=== PATIENT | female | born 1980 | race Caucasian/White ===

== ENCOUNTER 2016-06-12 20:08 | Emergency (ER) | payer OTHER ==
[~2016-06-12] VITALS: Ht 175.3 cm; Wt 62.5 kg
[2016-06-12 20:12] VITALS: Ht 175.3 cm; Wt 62.5 kg
[2016-06-12] MEDS ORDERED: CARB15DR48 BOTH EARS (22:07)
--- NOTE | 2016-06-12 22:13 | ERD ---
ER Documentation Chief Complaint Date/Time DATE: 06/12/16 TIME: 22:08 Chief Complaint can not hear from right ear HPI 36-year-old male, not female, presents to the ER for decreased hearing in his right ear has been going on for 3 days. He denies any fever chills or problems with balance. The ear does not hurt that is slightly uncomfortable. He's not use Q-tips or any instrumentation inside of his ears. ROS All systems reviewed and are negative except as per history of present illness. Medications Home Meds Active Scripts Carbamide Peroxide* (Debrox*) 6.5% - 15 Ml Drops, 10 DROP BOTH EARS BID, #2 BOTTLE Prov:AYANNA WING DO 06/12/16 Allergies Allergies: Coded Allergies: No Known Allergy (Unverified , 06/12/16) Physical Exam Vitals Vital Signs Date Time Temp Pulse Resp B/P Pulse Ox O2 Delivery O2 Flow Rate FiO2 06/12/16 20:12 96.6 64 20 132/81 96 Physical Exam Const: [] No distress Head: Atraumatic Eyes: Normal Conjunctiva ENT: Normal External Ears, Nose and Mouth., Left tympanic membrane with significant dry appearing cerumen, right tympanic membrane also a significant dry appearing cerumen going jail out the ear canal. Procedures/MDM 36-year-old male bilateral cerumen impaction, probably affecting hearing in his left ear. Thorax is very dry and does not appear amenable to irrigation at this time. Going to discharge with Debrox drops to soften the wax and instruct him to irrigate his ears were letting the water stream and rhythm from the shower. Told him after a few days of using Debrox in this fashion if he still has any perceived decreased hearing see his primary care doctor or return to the ER for irrigation of the ears. I see no signs of acute infection and doubt eardrum perforation. Departure Diagnosis: Primary Impression: Impacted cerumen of both ears Condition: Stable Patient Instructions: Cerumen Impaction, Home Care Additional Instructions: Call your primary care doctor TOMORROW for an appointment during the next 2-3 days.See the doctor sooner or return here if your condition worsens before your appointment time. AYANNA WING DO Jun 12, 2016 22:12
== END 2016-06-12 22:39 | disposition home or self-care (01) ==
LOC: FTE 20:08
DX: H61.23 Impacted cerumen, bilateral (principal)
CPT/HCPCS: 99283

== ENCOUNTER 2018-12-22 21:25 | Emergency (ER) | payer SELFPAY ==
[~2018-12-22] VITALS: Ht 170.2 cm; Wt 64.3 kg
[~2018-12-22 21:25] MED LIST: CARB15DR50 BOTH EARS
[2018-12-22 21:32] VITALS: BP 129/58; PULSE 68; RESP 18; Ht 170.2 cm; Wt 64.3 kg
[2018-12-22] MEDS ORDERED: DIPHTH/TET/ACEL PERTUSS (ADULT) 0.5 ML VIAL IM* ONE (23:00)
--- NOTE | 2018-12-22 23:29 | ERD ---
ER Documentation Chief Complaint Chief Complaint right thumb laceration while working with dental instruments at 5 pm HPI 38-year-old male with no reported past medical who presents with complaint of right thumb laceration. 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 Reports instruments used during procedure that day and dental office and were plan for sterilization. He is unsure which patient estimates were used on. Had mild bleeding to right thumb which has since resolved. Reports all vaccinations up-to-date. He otherwise is without complaint. ROS All systems reviewed and are negative except as per history of present illness. Medications Home Meds Active Scripts Carbamide Peroxide* (Debrox*) 6.5% - 15 Ml Drops, 10 DROP BOTH EARS BID, #2 BOTTLE Prov:AYANNA WING DO 06/12/16 Allergies Allergies: Coded Allergies: No Known Allergy (Unverified , 06/12/16) PMhx/Soc Medical and Surgical Hx: pt denies Medical Hx, pt denies Surgical Hx History of Surgery: No Anesthesia Reaction: No Hx Neurological Disorder: No Hx Respiratory Disorders: No Hx Cardiac Disorders: No Hx Psychiatric Problems: No Hx Miscellaneous Medical Probl: No Hx Alcohol Use: No Hx Substance Use: No Hx Tobacco Use: No Smoking Status: Never smoker FmHx Family History: No diabetes, No coronary disease, No other Physical Exam Vitals Vital Signs Date Temp Pulse Resp B/P (MAP) Pulse Ox O2 O2 Flow FiO2 Time Delivery Rate 12/22/18 97.1 68 18 129/58 98 21:32 (81) Physical Exam Const: No acute distress Head: Atraumatic Eyes: Normal Conjunctiva ENT: Normal External Ears, Nose and Mouth. Neck: Full range of motion. No meningismus. Resp: Clear to auscultation bilaterally Cardio: Regular rate and rhythm, no murmurs Abd: Soft, non tender, non distended. Normal bowel sounds Skin: No petechiae or rashes Back: No midline or flank tenderness Ext: No cyanosis, or edema, right thumb with superficial laceration, nonbleeding, SI LT throughout, moving all fingers. Neur: Awake and alert Psych: Normal Mood and Affect Results 24 hrs Current Medications Medications Dose Sig/Roya Start Time Status Last (Trade) Ordered Route PRN Stop Time Admin Dose Reason Admin Diphtheria/ 0.5 ml ONCE ONCE 12/22/18 DC 12/22/18 Tetanus/Acell IM* 23:00 23:03 Pertussis 12/22/18 23:01 (Adacel) Procedures/MDM 38-year-old male presents with laceration of right thumb after sustaining injury at dental clinic. Workplace exposure protocol initiated. Tdap given. She is advised to follow-up results of his testing. Right thumb laceration not requiring repair. DISPOSITION PLAN: We discussed follow up with the patient's primary care doctor within 24 to 48 hours. Patient counseled regarding my diagnostic impression and care plan. Prior to discharge all questions answered. Pt agrees with treatment plan and understands strict return precautions. Precautionary instructions provided including instructions to return to the ER if not improving or for any worsening or changing symptoms or concerns. Disclaimer: Inadvertent spelling and grammatical errors are likely due to EHR/dictation software use and do not reflect on the overall quality of patient care. Also, please note that the electronic time recorded on this note does not necessarily reflect the actual time of the patient encounter. Departure Condition: Stable HARJIT COMBS PA-C Dec 22, 2018 23:29
== END 2018-12-23 00:47 | disposition home or self-care (01) ==
LOC: FTE 21:25 → EDSEX 21:25 → FTE 12-23 00:47
DX: S61.011A Laceration without foreign body of right thumb without damage to nail, initial encounter (principal); W26.8XXA Contact with other sharp object(s), not elsewhere classified, initial encounter; Y92.9 Unspecified place or not applicable; Z23 Encounter for immunization
CPT/HCPCS: 86703; 86706; 86803; 87340; 90471; 90715